=== PATIENT | female | born 1970 | race Caucasian/White ===

== ENCOUNTER 2016-10-04 15:34 | Outpatient (CLI) | payer MEDICAID | END 2016-10-04 15:35 | disposition critical access hospital (66) | DX: R53.1 Weakness (principal) | CPT/HCPCS: A0425; A0429 ==

== ENCOUNTER 2016-10-04 15:54 | Emergency (ER) | payer MEDICAID ==
[2016-10-04] MEDS ORDERED: SODIUM CHLORIDE 0.9% 1,000 ML IV ONE (16:01)
== END 2016-10-04 17:26 | disposition home or self-care (01) ==
DX: Z71.1 Person with feared health complaint in whom no diagnosis is made (principal); R03.0 Elevated blood-pressure reading, without diagnosis of hypertension; F17.200 Nicotine dependence, unspecified, uncomplicated

== ENCOUNTER 2016-11-07 14:39 | Outpatient (CLI) | payer MEDICAID | END 2016-11-07 14:40 | disposition home or self-care (01) | DX: E78.5 Hyperlipidemia, unspecified (principal); E16.2 Hypoglycemia, unspecified; F41.9 Anxiety disorder, unspecified ==

== ENCOUNTER 2018-09-18 08:00 | Outpatient (CLI) | payer MEDICAID | END 2018-09-18 23:59 | disposition home or self-care (01) | LOC: LAB.R 08:00 | PROVIDERS: ATTEND Physician Assistant | DX: J02.9 Acute pharyngitis, unspecified (principal) | CPT/HCPCS: 87070 ==

== ENCOUNTER 2019-06-24 12:53 | Outpatient (CLI) | payer MEDICAID | END 2019-06-24 12:54 | disposition EMS.NT | LOC: EMS 12:53 | PROVIDERS: ATTEND Surgery | DX: M54.2 Cervicalgia (principal) ==

== ENCOUNTER 2019-06-24 16:46 | Emergency (ER) | payer MEDICAID, OTHER ==
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
[2019-06-24] MEDS ORDERED: CYCLOBENZAPRINE 10 MG TABLET PO STA (20:38)
[2019-06-24] MEDS ORDERED: HYDROcod/ACETAM 5/325 MG TABLET PO STA (20:38)
[2019-06-24 20:53] VITALS: BP 108/80
== END 2019-06-24 20:52 | disposition home or self-care (01) ==
LOC: ED 16:46
DX: S16.1XXA Strain of muscle, fascia and tendon at neck level, initial encounter (principal); V43.62XA Car passenger injured in collision with other type car in traffic accident, initial encounter; Y92.410 Unspecified street and highway as the place of occurrence of the external cause; M50.321 Other cervical disc degeneration at C4-C5 level; M48.02 Spinal stenosis, cervical region; E04.1 Nontoxic single thyroid nodule; F17.200 Nicotine dependence, unspecified, uncomplicated
CPT/HCPCS: 72125; 99282; 99284; A9270

== ENCOUNTER 2019-07-29 08:27 | Outpatient (CLI) | payer MEDICAID ==
--- NOTE | 2019-07-30 09:01 | Ultrasound Report ---
Reason: THYROID NODULE RT Procedure Date: 07/29/2019 Accession Number: [id number] / [id number] Procedure: US - Head or Neck Soft Tissue CPT Code: Final Report FULL RESULT: EXAM: THYROID ULTRASOUND EXAM DATE: 07/29/2019 09:28 AM. CLINICAL HISTORY: THYROID NODULE RT seen on 06/24/[address] For further evaluation COMPARISON: CERVICAL SPINE W/O 06/24/2019 7:42 PM. TECHNIQUE: Real time sonographic imaging of the thyroid was performed by the genomics scientist. Multiple freight representative static images were saved for review. FINDINGS: THYROID GLAND: Right Lobe: 4.4 x 1.2 x 1.7 cm, volume 4.7 cc. Normal background echotexture. Right Lobe Nodules: 1 x 0.6 x 1 cm isoechoic spongiform peripheral midpole nodule without calcifications, low suspicion. Left Lobe: 3.4 x 1.2 x 1.4 cm, volume 2.9 cc. Normal background echotexture. Left Lobe Nodules: None. Isthmus: 0.27 cm AP. Isthmic Nodules: None. LYMPH NODES: No adenopathy demonstrated in the central or lateral compartment. OTHER: None. IMPRESSION: Right thyroid 1 x 0.6 x 1 cm isoechoic spongiform nodule. Suggest follow-up thyroid ultrasound in 6-12 months. Otherwise negative. Management recommendations are based on 2015 [place] [employer] Management Guidelines for Adult Patients with Thyroid Nodules and Differentiated Thyroid Cancer. [facility]
== END 2019-07-29 08:28 | disposition home or self-care (01) ==
LOC: DI 08:27
PROVIDERS: ATTEND Physician Assistant
DX: E04.1 Nontoxic single thyroid nodule (principal)
CPT/HCPCS: 76536